=== PATIENT | female | born 1965 | race Caucasian/White ===

== ENCOUNTER 2024-09-10 14:20 | Emergency (ER) | payer MEDICAID, SELFPAY ==
[2024-09-10] VITALS (16 sets, daily range): BP systolic 105–152; BP diastolic 72–90; PULSE 88–131; RESP 16–28; TEMP 36.6–36.9; O2SAT 66–100; BMI 21.6
[2024-09-10] MEDS: LORazepam 2 MG/ML VIAL IM (14:34)
--- NOTE | 2024-09-10 14:34 | PC.NURSE ---
PT ANXIOUS AND UNABLE TO STAY STILL. PT REPORTED USING METH THIS AM. PT MEDICATED WITH ATIVAN PER DOCTORS ORDERS
--- NOTE | 2024-09-10 14:43 | XR_ITS ---
Examination: AP chest single view Technique one AP portable upright chest single view Exam date and time: September 10, 2024 at 1458 hrs. Indications: Onset SOB today. Findings: Normal heart size Moderate hyperexpansion Interstitial increased markings throughout the lungs No lobar pneumonia No nini pulmonary edema Impression: COPD Bronchitis versus pulmonary fibrosis throughout the lungs, consider elective high resolution CT chest without contrast follow-up
--- NOTE | 2024-09-10 14:50 | PC.NURSE ---
PT CAME IN WITH C/O DIFFICULTY BREATHING. PT STATES THAT SHE WAS SEEN BY A DOCTOR A FEW DAYS AGO FOR THE SAME REASON AND STATES THAT SHE IS NOT BETTER. EXPIRATORY WHEEZING NOTED. PT PLACED ON CC MONITOR
[2024-09-10] MEDS: DEXAMETHASONE SOD PHOS INJ 10 MG/ML VIAL 6 MG IV (14:57)
--- NOTE | 2024-09-10 15:16 | PD.EDADULT ---
ED General RME/HPI General Chief complaint: Shortness of Breath/Dyspnea Stated complaint: SOB Time Seen by Provider: 09/10/24 14:25 Arrival date/time: 09/10/24 14:20 RME / HPI RME / HPI narrative: 59-year-old female with a history of methamphetamine abuse who presents with shortness of breath and anxiety accusing methamphetamines today. She has continuous to smoke cigarettes. She is agitated and poorly cooperative. She is active, hypervigilant. She is panicking and perseverating about mucus in the back of my throat . Related Data Previous Rx's ?Medication ?Instructions ?Recorded acetaminophen 500 mg capsule 1,000 mg (2 x 500 mg) PO Q8HR PRN 11/04/22 pain #30 caps albuterol sulfate 90 mcg/actuation 1 puff inhalation QID PRN 09/16/23 aerosol inhaler shortness of breath or wheezing #8.5 grams amoxicillin 875 mg-potassium 1 tab PO BID #14 tabs 09/16/23 clavulanate 125 mg tablet prednisone 50 mg tablet 50 mg PO QDAY #5 tabs 09/16/23 Allergies Allergy/AdvReac Type Severity Reaction Status Date / Time NKA* Allergy Uncoded 11/04/22 08:56 ED Exam Narrative Physical exam: GENERAL APPEARANCE: AxOx4, very anxious, hyperactive, writhing, tremulous, tachycardic, crying about how she has mucus in the back of her throat HEENT: NC, AT. MMM. EOMI, clear conjunctiva, oropharynx clear. NECK: Supple without lymphadenopathy. No stiffness or restricted ROM. HEART: Normal rate and regular rhythm, normal S1/S1, no m/r/g LUNGS: CTAB, moving air well. Mild expiratory wheezes no crackles or wheezes are heard. ABDOMEN: Soft, nontender, nondistended with good bowel sounds heard. BACK: No midline C/T/L spine pain or deformity, No CVAT, no obvious deformity. EXTREMITIES: Without cyanosis, clubbing or edema. MUSCULOSKELETAL: FROM of all major joints, no chest tenderness NEUROLOGICAL: Grossly nonfocal. Alert and oriented, moving all 4 extremities. CN not formally tested but appear grossly intact. Observed to ambulate with normal gait. Skin: Warm and dry without any rash. Course Course Course Narrative: After treatment patient is resting comfortably, oxygen saturation 96 to 97% on room air. Quality Measures none Orders Category Date Time Status XR chest 1V Stat Exams 09/10/24 14:43 Completed CBC Stat Lab 09/10/24 15:11 Completed CMP [Comprehensive Metabolic Panel] Stat Lab 09/10/24 15:11 Completed Troponin I Stat Lab 09/10/24 15:11 Completed Albuterol/Ipratr Rt Magdalene [Duoneb Rt Magdalene] Med 09/10/24 15:04 Discontinued 3 ml INH X1 ONE Dexamethasone Inj [Decadron Inj] Med 09/10/24 14:41 Discontinued 6 mg IV X1 ONE LORazepam [Ativan Inj] Med 09/10/24 14:29 Discontinued 2 mg IM X1 ONE Vital Signs Vital signs: Vital Signs Temperature 98.2 F 09/10/24 14:25 Pulse Rate 131 H 09/10/24 14:25 Respiratory Rate 28 H 09/10/24 14:25 Blood Pressure 138/90 H 09/10/24 14:25 Pulse Oximetry (%) 100 09/10/24 14:25 Oxygen Delivery Method Oxy Mask 09/10/24 14:25 Oxygen Flow Rate 15 09/10/24 14:25 I did a room air oxygen saturation where she ranges from 90 to 92% on room air, which is mildly hypoxic but appropriate and patient with chronic COPD. [facility] Patient data External records reviewed:: [facility] previous records Clinical information provided by:: patient Social determinants that could affect healthcare access:: substance use Patient has the following chronic illnesses:: COPD How is presenting disease/condition affected by chronic disease/condition?: caused by Evaluation data The following diagnostics were reviewed and interpreted by me:: lab results, radiology exam(s) and EKG tracing(s) Lab and/or radiology exams considered but not ordered:: None Interpretation Summary: None Medications Medications considered but not ordered:: None Medication administrations:: Medication Administration History Discontinued Medications Albuterol/Ipratropium (Albuterol/Ipratropium (Duoneb) Rt Magdalene 3 Ml Nebu) 3 ml INH X1 ONE Stop: 09/10/24 15:05 Last Admin: 09/10/24 15:21 Dose: 3 ml Documented By: BRIGIDA Dexamethasone Sodium Phosphate (Dexamethasone Sod Phos Inj 10 Mg/Ml Vial) 6 mg IV X1 ONE Stop: 09/10/24 14:42 Last Admin: 09/10/24 14:57 Dose: 6 mg Documented By: DO Lorazepam (Lorazepam 2 Mg/Ml Vial) 2 mg IM X1 ONE Stop: 09/10/24 14:30 Last Admin: 09/10/24 14:34 Dose: 2 mg Documented By: LF Above Consultations Consultation(s) initiated? (list below): No Diagnosis Differential Diagnosis ED Complaint MDM: COPD exacerbation, methamphetamine intoxication, alcohol intoxication, drug Most likely diagnosis given after review of the tests above:: See below Admission Indicated Admission indicated?: not indicated Explain why admission is indicated or not indicated:: Patient responded well to IM Ativan, nebulized bronchodilators, and steroids. She is resting comfortably with stable vital signs and satting well on room air without respiratory distress. She is appropriate outpatient follow-up. Admission Request Was there a request for admission?: No Disposition Plan Disposition Plan: Discharge Discharge Attestation Discharge Attestation: The patient and all family members were given an opportunity to ask questions and understood the discharge instructions. Discharge instructions specifically effects, indications for sooner follow up or return to the emergency department, and the expected course of current diagnosis. Patient condition: Stable Medical Decision Making MDM Narrative MDM Narrative: Ms. Jiménez presents by EMS with complaints of shortness of breath however she is screaming and hollering paranoid about mucus at the back of her throat. I suspect this is more of a component of a hyperstimulated methamphetamine/sympathomimetic toxidrome with some component of reactive airways. After IM Ativan, she was resting comfortably however her room air saturations were around 90 to 92% with some faint end expiratory wheezes. She was treated with IV Decadron as she insist I cannot swallow pills since I was a child . She was given a nebulized bronchodilator treatments and has been sleeping and resting comfortably on room air with oxygen saturation of 96 to 97%. Laboratory testing shows no acute findings. X-ray of the chest shows no acute cardiopulmonary findings, she does have chronic lung changes consistent with COPD, no cardiomegaly, and no bony abnormalities. I reviewed the radiology interpretation and agree. As she has stable vital signs, no respiratory distress, she is appropriate for outpatient follow-up. I have counseled her on the importance of drug and/or alcohol cessation. Differential Diagnosis Differential Diagnosis: COPD exacerbation, methamphetamine intoxication, alcohol intoxication, drug Lab Data 09/10/24 15:11 09/10/24 15:11 Labs: Lab Results 09/10/24 Range/Units 15:11 WBC 14.3 H (3.6-11.0) Thou/mm3 RBC 4.89 (4.00-5.20) Miln/mm3 Hgb 14.2 (12.0-16.0) g/dL Hct 42.0 (36.0-46.0) % MCV 86 (80-100) fL MCH 29.0 (25.0-35.0) pg MCHC 33.8 (31.0-37.0) g/dl RDW Std Deviation 42.5 (36.4-46.3) fL Plt Count 273 (140-440) Thou/mm3 Neut % (Auto) 82 H (37-80) % Lymph % (Auto) 11 (10-50) % [place] % (Auto) 5 (0-12) % Eos % (Auto) 0 (0-10) % Baso % (Auto) 0 (0-2.5) % Neut # (Auto) 11.8 H (1.8-7.7) Thou/mm3 Lymph # (Auto) 1.6 (1.0-4.8) Thou/mm3 [place] # (Auto) 0.8 (0.0-0.8) Thou/mm3 Eos # (Auto) 0.1 (0.0-0.5) Thou/mm3 Baso # (Auto) 0.0 (0.0-0.2) Thou/mm3 Immature Gran # (Auto) 0.07 H (0.00-0.00) Thou/mm3 Absolute Nucleated RBC 0.00 (0.00-0.00) Thou/mm3 Immature Gran % 1 H (0-0) % Nucleated RBC % 0 (0) /100 WBC Sodium 140 (136-145) mMol/L Potassium 4.1 (3.4-5.1) mMol/L Chloride 107 (98-107) mMol/L Carbon Dioxide 21.8 (20.0-31.0) mMol/L Anion Gap 11 (7-16) BUN 11 (9-23) mg/dL Creatinine 0.9 (0.6-1.3) mg/dL Estim Creat Clear Calc 61.3 (>60) mL/min eGFR > 60 (60 - ) See Note BUN/Creatinine Ratio 12 (12-20) Ratio Glucose 87 (74-106) mg/dL Calculated Osmolality 277 (275-295) Calcium 9.5 (8.3-10.6) mg/dL Corrected Calcium 9.5 (8.5-10.1) mg/dL Total Bilirubin 0.5 (0.3-1.2) mg/dL AST 36 H (0-34) U/L ALT 32 (10-49) U/L Alkaline Phosphatase 105 (46-116) U/L Troponin I < 0.002 (0.0-0.045) ng/mL Total Protein 7.7 (5.7-8.2) gm/dL Albumin 4.7 (3.5-5.0) gm/dL Globulin 3.0 (2.3-3.5) gm/dL Albumin/Globulin Ratio 1.6 (1.2-2.2) Discharge Plan Plan Patient Disposition: HOME (Self Care) Prescriptions/Referrals Prescriptions/Med Rec: No Action acetaminophen 500 mg capsule 1,000 mg PO Q8HR PRN (Reason: pain) Qty: 30 0RF amoxicillin-pot clavulanate 875-125 mg tablet 1 tab PO BID Qty: 14 0RF prednisone 50 mg tablet 50 mg PO QDAY Qty: 5 0RF albuterol sulfate 90 mcg/actuation HFA aerosol inhaler 1 puff inhalation QID PRN (Reason: shortness of breath or wheezing) Qty: 8.5 0RF Referrals: No Primary/Family,Physician [Primary Care Provider] - In 1 week Problem List Clinical Impression: Methamphetamine abuse, COPD exacerbation Patient/Caregiver Discharge Instructions Education Materials: ED COPD Flare, ED Drug Abuse Additional Instructions: Use your inhaler, 1 puff every 6 hours for the next 3 days. Stop using methamphetamines and other illicit drugs for better health. Follow-up with your primary care doctor and or [facility] if you feel ready for alcohol and/or drug rehabilitation. You can return to the emergency department sooner if symptoms worsen or if you notice any new, concerning issues. Print Language: Urdu Stand Alone Forms: [employer] Award Info., Patient Portal Info Letter
[2024-09-10 15:20] LABS: Basophils % (Auto) 0 % (0-2.5); Eosinophils # (Auto) 0.1 Thou/mm3 (0.0-0.5); Eosinophils % (Auto) 0 % (0-10); Hemoglobin 14.2 g/dL (12.0-16.0); Immature Granulocytes % (Auto) 1 % (0-0); Immature Granulocytes Auto 0.07 Thou/mm3 (0.00-0.00); Lymphocytes # (Auto) 1.6 Thou/mm3 (1.0-4.8); Lymphocytes % (Auto) 11 % (10-50); Mean Corpuscular HGB Conc 33.8 g/dl (31.0-37.0); Mean Corpuscular Volume 86 fL (80-100); Monocytes # (Auto) 0.8 Thou/mm3 (0.0-0.8); Monocytes % (Auto) 5 % (0-12); Neutrophils # (Auto) 11.8 Thou/mm3 (1.8-7.7); Neutrophils % (Auto) 82 % (37-80); Nucleated Red Blood Cell % 0 /100 WBC (0); Platelet Count 273 Thou/mm3 (140-440); RDW Standard Deviation 42.5 fL (36.4-46.3); Red Blood Count 4.89 Miln/mm3 (4.00-5.20); White Blood Count 14.3 Thou/mm3 (3.6-11.0)
[2024-09-10] MEDS: ALBUTEROL/IPRATROPIUM (Duoneb) RT SOL 3 ML NEBU INH (15:21)
[2024-09-10 15:48] LABS: Alanine Aminotransferase 32 U/L (10-49); Albumin, Serum 4.7 gm/dL (3.5-5.0); Albumin/Globulin Ratio 1.6 (1.2-2.2); Alkaline Phosphatase 105 U/L (46-116); Anion Gap 11 (7-16); Aspartate Amino Transferase 36 U/L (0-34); BUN/Creatinine Ratio 12 Ratio (12-20); Bilirubin,Total 0.5 mg/dL (0.3-1.2); Blood Urea Nitrogen 11 mg/dL (9-23); Calcium 9.5 mg/dL (8.3-10.6); Calcium (Corrected) 9.5 mg/dL (8.5-10.1); Carbon Dioxide 21.8 mMol/L (20.0-31.0); Chloride 107 mMol/L (98-107); Creatinine (Component) 0.9 mg/dL (0.6-1.3); Estimated Creatinine Clearance 61.3 mL/min (>60); Glucose 87 mg/dL (74-106); Osmolality,Calculated 277 (275-295); Potassium 4.1 mMol/L (3.4-5.1); Sodium 140 mMol/L (136-145); Total Protein 7.7 gm/dL (5.7-8.2); Troponin I < 0.002 ng/mL (0.0-0.045); eGFR > 60 See Note
== END 2024-09-10 23:07 | disposition home or self-care (01) ==
PROVIDERS: Emergency Provider Emergency Medicine
DX: J44.1 Chronic obstructive pulmonary disease with (acute) exacerbation (principal); F15.10 Other stimulant abuse, uncomplicated; F17.210 Nicotine dependence, cigarettes, uncomplicated
CPT/HCPCS: 36415; 71045; 80053; 84484; 85025; 94640; 96372; 96374; 99284; A9270; J1100; J2060

== ENCOUNTER 2025-08-22 06:49 | Emergency (ER) | payer MEDICAID, SELFPAY ==
--- NOTE | 2025-08-22 06:52 | EKG_ITS ---
[facility] Test Date: 2025-08-22 Pat Name: KEYLA LYNN Department: Room: - Gender: Female Promotions Manager: : 1965 Requested By: Ashok Vasques Order Number: [id number] Reading MD: Ashok Vasques Measurements Intervals [place] Rate: 101 P: 88 WA: 111 QRS: 88 QRSD: 86 T: 81 QT: 360 QTc: 468 Interpretive Statements SINUS TACHYCARDIA WITH SHORT WA INTERVAL ABNORMAL RHYTHM ECG No previous ECG available for comparison /[id number]/[email or web address]/[id number].pdf
--- NOTE | 2025-08-22 06:52 | XR_ITS ---
AP portable chest film on 08/22/2025 at 6:57 a.m. INDICATION: Shortness of breath for 1 day Comparison study 09/10/2024 FINDINGS: Heart and mediastinum appear normal. There are a few very tiny Molina B lines along the lower lateral margin of both lungs, indicating the probable probability of minor interstitial prominence in these regions there is chronic major elevation of the minor fissure on the right unchanged from the prior film 1 year ago, and in the atelectatic right upper lobe its vasculature is pretty much replaced by blebs. All these findings are stable and unchanged. There does appear to be a background pattern of very mild but definite interstitial fibrosis, the entire appearance is stable and unchanged. There our prominent degenerative osteophytes noted along the lateral margin of the dorsal spine on the right no bony abnormalities are identified anywhere else. IMPRESSION: 1. Appearance of the lungs suggest probable COPD and definite mild diffuse interstitial fibrosis, with chronic major atelectasis in the right upper lobe which is replaced nearly completely by emphysematous blebs. 2. No change since the previous chest film no acute disease
[2025-08-22 07:01] VITALS: PULSE 112; RESP 20; O2SAT 94
[2025-08-22 07:05] VITALS: PULSE 109; RESP 21; RESP 92
[2025-08-22 07:17] VITALS: BMI 20.9
--- NOTE | 2025-08-22 07:30 | PC.NURSE ---
Covid-19 bedside negative, Influenza A&B bedside negative, RSV bedside negative
--- NOTE | 2025-08-22 07:32 | PC.NURSE ---
Patient went to the fire station because she felt SOB. 911 was called by fire station and patient was brought in to the ED by [facility]. Patient received 3 albuterol breathing treatments in route, per medics SpO2 improved from 94% RA to 98% on oxygen and after the albuterol treatments. Patient has a Hx of COPD, patient smokes everyday.
--- NOTE | 2025-08-22 07:40 | EDNOTE_ITS ---
ED General RME/HPI General Chief complaint: Shortness of Breath/Dyspnea Stated complaint: SOB Time Seen by Provider: 08/22/25 06:52 Arrival date/time: 08/22/25 06:49 Related Data Previous Rx's ?Medication ?Instructions ?Recorded acetaminophen 500 mg capsule 1,000 mg (2 x 500 mg) PO Q8HR PRN 11/04/22 pain #30 caps albuterol sulfate 90 mcg/actuation 1 puff inhalation Q ID PRN 09/16/23 aerosol inhaler shortness of breath or wheez ing #8.5 grams amoxicillin 875 mg-potassium 1 tab PO BID #14 tabs 03/04 clavulanate 125 mg tablet prednisone 50 mg tablet 50 mg PO QDAY #5 tabs azithromycin 500 mg tablet 500 mg PO QDAY 2 days #2 ta bs 08/22/25 prednisone 20 mg tablet See Taper PO QDAY #33 tabs 1 10/23/24 Allergies Allergy/AdvReac Type Severity Reaction Status Date / Time NKA* Allergy Uncoded 11/04/22 08:56 ED Exam Narrative Physical exam: Physical Exam: GENERAL: Awake, answers some questions appropriately but appears to be responding to internal stimuli, appears older than stated age, poor hygiene HEENT: NC/AT. Dry mucosa. PERRLA/EOMI. CARDIO: Heart RRR, no obvious murmurs, no JVD. PULM: No coughing or visible SOB. Lungs CTA B/L but there is poor inspiratory effort and ventilation GI: Abdomen soft, NT/ND, +BS. SKIN/MSK/EXT: No wounds/edema/amputations noted. +Pedal pulses present B/L. NEURO: Oriented x3, Moves extremities x4, no focal neurologic deficits noted. Course Quality Measures none Orders Category Date Time Status Bedside COVID-19 Antigen Test NOW Care 08/22/25 07:05 Active Bedside COVID-19 Antigen Test NOW Care 08/22/25 08:45 Active Bedside Influenza A&B Antigen Test NOW Care 08/22/25 09:05 Completed Bedside RSV Test NOW Care 08/22/25 09:04 Completed EKG (ED ONLY) *Do not use* NOW Care 08/22/25 06:53 Completed Insert IV NOW Care 08/22/25 06:52 Active CXRP [XR chest 1V portable] Stat Exams 08/22/25 06:52 Completed EKG (ED Only) Stat Exams 08/22/25 06:52 Draft BNP [B-Type Natriuretic Peptide] Stat Lab 08/22/25 07:30 Completed CBC Stat Lab 08/22/25 07:30 Completed CMP [Comprehensive Metabolic Panel] Stat Lab 08/22/25 07:30 Completed Influenza A & B Rapid Panel Stat Lab 08/22/25 07:29 Ordered Lactic Acid [Lactate (Lactic Acid)] Stat Lab 08/22/25 07:30 Completed RSV [Respiratory Syncytial Virus Ag] Stat Lab 08/22/25 07:31 Ordered Troponin I Stat Lab 08/22/25 07:30 Completed VBG [Venous Blood Gas] Stat Lab 08/22/25 07:30 Completed Azithromycin Inj [Zithromax Inj] 500 mg Med 08/22/25 06:54 Discontinued Sodium Chloride 0.9% 250 ml [Ns] 250 ml IV X1 Levalbuterol Rt [Xopenex Rt Magdalene] Med 08/22/25 07:30 Discontinued 0.63 mg INH X1 ONE Magnesium Sulfate 2 GM Ivpb [Magnesium Sulfate Ivpb] Med 08/22/25 07:00 D iscontinued 2 gm in 50 ml IV X1 MethylPREDNISolone.* [SoluMEDROL Inj] Med 08/22/25 06:53 Discontinued 125 mg IVP X1 ONE MethylPREDNISolone.* [SoluMEDROL Inj] Med 08/22/25 06:59 Discontinued 125 mg IVP X1 ONE MethylPREDNISolone.* [SoluMEDROL Inj] Med 08/22/25 06:53 Discontinued 60 mg IVP X1 ONE Oxygen Delivery NOW RT 08/22/25 06:57 Active Vital Signs Vital signs: Vital Signs Pulse Rate 109 H 08/22/25 07:05 Respiratory Rate 21 H 08/22/25 07:05 Discharge Plan Plan Patient Disposition: HOME (Self Care) Patient condition on transfer: Stable Prescriptions/Referrals Prescriptions/Med Rec: New azithromycin 500 mg tablet 500 mg PO QDAY 2 Days Qty: 2 0RF prednisone 20 mg tablet See Taper PO QDAY Qty: 33 0RF Taper: Prednisone Taper 60 mg DAILY for 5 Days and 0 Hour 40 mg DAILY for 5 Days and 0 Hour 20 mg DAILY for 5 Days and 0 Hour 10 mg DAILY for 5 Days and 0 Hour No Action acetaminophen 500 mg capsule 1,000 mg PO Q8HR PRN (Reason: pain) Qty: 30 0RF amoxicillin-pot clavulanate 875-125 mg tablet 1 tab PO BID Qty: 14 0RF prednisone 50 mg tablet 50 mg PO QDAY Qty: 5 0RF albuterol sulfate 90 mcg/actuation HFA aerosol inhaler 1 puff inhalation QID PRN (Reason: shortness of breath or wheezing) Qty: 8.5 0RF Referrals: Jama Blair MD [Primary Care Provider] - In 1 week Problem List Clinical Impression: Acute exacerbation of chronic obstructive pulmonary disease (COPD) Patient/Caregiver Discharge Instructions Education Materials: Chronic Lung Disease Preventing ... Additional Instructions: Take azithromycin 500 mg by mouth once a day for 2 additional days Take prednisone 40 mg by mouth once a day for 5 days Follow-up with your primary care provider within the next 3 days If your symptoms worsen or if you develop worsening shortness of breath, chest pain, dizziness or loss of consciousness - please come back to the ER immediately. Print Language: Australian Stand Alone Forms: [employer] Award Info., Patient Portal Info Letter MDM Narrative MDM hospital course (for use when minimal MDM required): HPI: 60-year-old female with past medical history of COPD not on any home oxygen, tobacco use disorder, polysubstance use disorder with methamphetamine and marijuana, likely homeless presenting to the ED on 08/22 via EMS after she was [facility] at [facility] in acute respiratory distress. Upon route 3 albuterol breathing treatments were initiated as the patient apparently had bilateral wheezing noted to EMS providers. She is able to answer some questions appropriately but she appears to be reacting to internal stimuli and is repeating unintelligible words. Of note, patient has previous ED visit with a similar presentation. She does answer some of my questions correctly such as endorsing some chest tightness and feeling short of breath. Unable to get much history from her due to her current condition. On examination, please refer to the physical exam above; patient presented normotensive but tachycardic heart rate 109, respiratory rate of 19, afebrile satting 91 on minimal supplemental oxygen. Labs including CBC unremarkable without any leukocytosis or anemia noted, VBG showed pH of 7.32, pCO2 53, CMP was largely unremarkable other than mild hyperchloremia with chloride at 109, bicarb 25.6, LFTs slightly elevated with AST 51, ALT 47 otherwise T. bili of 0.5 and alk phos of 116, troponin was less than 0.020 BNP 51. Chest x-ray showed signs of COPD with some mild interstitial fibrosis noted but no pneumonia and EKG showed sinus tachycardia, poor R wave progression but without any concerning ST changes noted. #COPD exacerbation As noted above but based on HPI, labs and imaging findings Patient given IV methylprednisolone 125 mg, breathing treatment with levalbuterol, azithromycin IV 500 mg x 1 and magnesium 2 g Plan: Will discharge patient with the following strict instructions Take azithromycin 500 mg by mouth once a day for 2 additional days Take prednisone taper (60-40-20-10 mg 5 days each dose listed) Follow-up with your primary care provider within the next 3 days If your symptoms worsen or if you develop worsening shortness of breath, chest pain, dizziness or loss of consciousness - please come back to the ER immediately. Patient seen and assessed with attending Dr. Hemal Vasques, DO PGY-2 Internal Medicine - [facility] Medication Administration(s) Medication Administration History Discontinued Medications Azithromycin 500 mg/ Sodium (Chloride) 250 mls @ 250 mls/hr IV X1 ONE Stop: 08/22/25 07:53 Last Admin: 08/22/25 08:26 Dose: 250 mls/hr Documented By: CLAUDIA Magnesium Sulfate (Magnesium Sulfate Ivpb) 2 gm in 50 mls @ 25 mls/hr IV X1 ONE Stop: 08/22/25 08:59 Last Admin: 08/22/25 08:24 Dose: 25 mls/hr Documented By: CLAUDIA Levalbuterol HCl (Levalbuterol Rt 0.63 Mg/3 Ml Nebu) 0.63 mg INH X1 ONE Stop: 08/22/25 07:31 Last Admin: 08/22/25 09:14 Dose: 0.63 mg Documented By: MICHAEL Methylprednisolone Sodium Succinate (Methylprednisolone Sod Succ 62.5 Mg/Ml 2ml Vial) 125 mg IVP X1 ONE Stop: 08/22/25 06:54 Last Admin: 08/22/25 08:22 Dose: Not Given Documented By: CLAUDIA Non-Admin Reason: Discontinued Methylprednisolone Sodium Succinate (Methylprednisolone Sod Succ 62.5 Mg/Ml 2ml Vial) 60 mg IVP X1 ONE Stop: 08/22/25 06:54 Last Admin: 08/22/25 08:22 Dose: Not Given Documented By: CLAUDIA Non-Admin Reason: Discontinued Methylprednisolone Sodium Succinate (Methylprednisolone Sod Succ 62.5 Mg/Ml 2ml Vial) 125 mg IVP X1 ONE Stop: 08/22/25 07:00 Last Admin: 08/22/25 08:21 Dose: 125 mg Documented By: CLAUDIA
[2025-08-22 07:44] LABS: Base Excess, Venous 0 (-3-3); Basophils # (Auto) 0.1 Thou/mm3 (0.0-0.2); Basophils % (Auto) 1 % (0-2.5); Eosinophils # (Auto) 0.1 Thou/mm3 (0.0-0.5); Eosinophils % (Auto) 2 % (0-10); Hematocrit 39.7 % (36.0-46.0); Hemoglobin 13.3 g/dL (12.0-16.0); Immature Granulocytes Auto 0.02 Thou/mm3 (0.00-0.00); Lymphocytes # (Auto) 2.3 Thou/mm3 (1.0-4.8); Lymphocytes % (Auto) 34 % (10-50); Mean Corpuscular HGB Conc 33.5 g/dl (31.0-37.0); Mean Corpuscular Hemoglobin 29.0 pg (25.0-35.0); Mean Corpuscular Volume 87 fL (80-100); Monocytes # (Auto) 0.6 Thou/mm3 (0.0-0.8); Monocytes % (Auto) 9 % (0-12); Neutrophils # (Auto) 3.6 Thou/mm3 (1.8-7.7); Neutrophils % (Auto) 54 % (37-80); Nucleated Red Blood Cell # 0.00 Thou/mm3 (0.00-0.00); Nucleated Red Blood Cell % 0 /100 WBC (0); O2 Saturation, Venous 57 % (96-97); PCO2, Venous 53 mmHg (36-56); PO2, Venous 33 mmHg (15-58); Platelet Count 298 Thou/mm3 (140-440); RDW Standard Deviation 43.9 fL (36.4-46.3); Red Blood Count 4.58 Miln/mm3 (4.00-5.20); White Blood Count 6.7 Thou/mm3 (3.6-11.0); pH, Venous 7.32 (7.33-7.66)
[2025-08-22 07:46] LABS: Lactate (Lactic Acid) 1.6 mMol/L (0.4-2.0)
[2025-08-22 07:56] VITALS: BP 130/75; RESP 19; TEMP 36.7; O2SAT 91
[2025-08-22 08:05] LABS: B-Type Natriuretic Peptide 51 pg/mL (0-100)
[2025-08-22 08:11] LABS: Alanine Aminotransferase 47 U/L (10-49); Albumin, Serum 4.5 gm/dL (3.5-5.0); Albumin/Globulin Ratio 1.7 (1.2-2.2); Alkaline Phosphatase 116 U/L (46-116); Anion Gap 9 (7-16); Aspartate Amino Transferase 51 U/L (0-34); BUN/Creatinine Ratio 19 Ratio (12-20); Bilirubin,Total 0.5 mg/dL (0.3-1.2); Blood Urea Nitrogen 19 mg/dL (9-23); Calcium 8.9 mg/dL (8.3-10.6); Calcium (Corrected) 8.9 mg/dL (8.5-10.1); Carbon Dioxide 25.6 mMol/L (20.0-31.0); Chloride 109 mMol/L (98-107); Creatinine (Component) 1.0 mg/dL (0.6-1.3); Estimated Creatinine Clearance 54.5 mL/min (>60); Globulin 2.6 gm/dL (2.3-3.5); Glucose 108 mg/dL (74-106); Osmolality,Calculated 290 (275-295); Potassium 3.6 mMol/L (3.4-5.1); Sodium 144 mMol/L (136-145); Total Protein 7.1 gm/dL (5.7-8.2); Troponin I < 0.020 ng/mL (0.0-0.045); eGFR > 60 See Note
[2025-08-22] MEDS: MethylPREDNISolone SOD SUCC 62.5 MG/ML 2ML VIAL 125 MG IVP (08:21)
[2025-08-22] MEDS: Magnesium Sulfate 2 GM Ivpb 2 GM/50 ML BAG IV (08:24)
[2025-08-22] MEDS: AZITHROMYCIN INJ 500 MG in SODIUM CHLORIDE 0.9% 250 ML 250 ML 250 MG IV (08:26)
[2025-08-22 09:14] VITALS: PULSE 85; RESP 16; O2SAT 98
[2025-08-22] MEDS: LEVALBUTEROL RT 0.63 MG/3 ML NEBU INH (09:14)
== END 2025-08-22 10:38 | disposition home or self-care (01) ==
PROVIDERS: Emergency Provider Family Medicine; PCP Family Medicine
DX: J44.1 Chronic obstructive pulmonary disease with (acute) exacerbation (principal); R00.0 Tachycardia, unspecified
CPT/HCPCS: 36415; 71045; 80053; 80307; 81001; 82803; 83605; 83880; 84484; 85025; 87502; 87634; 87635; 93005; 94640; 96365; 96366; 99284; J0456; J2919; J3475; J7050